=== PATIENT | male | born 1935 | race Caucasian/White ===

== ENCOUNTER → 2017-01-23 | Outpatient (CLI) | payer MEDICARE, BC ==
[~2017-01-23] MED LIST: ADALATCC PO; AMBIEN PO; ASPIRIN PO; ASPIRIN81 M1 PO; ASPIRIN81 MG PO; ATORVASTATIN CA10 MG PO; BENZONATATE PO; BUMEX1 MG PO; CELEBREX PO; CEPHALEXIN PO; CIPRO PO; CLARITIN10 M3 PO; CLONIDINE HCL0.1 MG PO; CLOPIDOGREL BIS75 MG PO; COLCRYS0.6 MG PO; CORDARONE200 M1 PO; DUONEB 2.5-0.5 M3 ML NEB; EFFEXOR XR PO; EFFEXOR XR150 MG PO; EFFEXOR XR75 MG PO; FLOMAX PO; FLOMAX0.4 M1 PO; FLOMAX0.4 MG PO; FUROSEMIDE80 MG PO; HYDRALAZINE HCL50 MG PO; IMDUR120 MG PO; ISORDIL PO; LASIX PO; LEVAQUIN PO; LIPITOR PO; LISINOPRIL20 MG PO; METOCLOPRAMIDE H5 MG PO; METOPROLOL TAR25 MG PO; MIRTAZAPINE30 M1 PO; MUCINEX DM ER1 EACH PO; MUCUS ER600 MG PO; NEPHROCAPS1 CAP PO; NORCO 5/325 TAB1 TAB PO; NORVASC10 MG PO; PANTOPRAZOLE SO40 MG PO; PREDNISONE PO; PRO-AMATINE5 M1 PO; PRO-AMATINE5 MG PO; PROTONIX PO; PULMICORT0.5 MG/2 M NEB; REGLAN5 MG PO; RENAL SOFTGEL1 MG PO; ROBITUSSIN100 MG/51 PO; SENNA-S TABLET1 EACH PO; SEROQUEL XR50 MG PO; SEROQUEL50 MG DOB; SERTRALINE HCL100 M1 PO; SIMVASTATIN20 MG PO; SKELAXIN PO; SYNTHROID PO; SYNTHROID125 PO; TOPROL XL 50 MG50 M1 PO; TOPROL XL PO; TRAMADOL HCL50 M2 PO; TYLOX1 CAP 5/50; ULORIC40 MG PO; ZOCOR20 MG PO; ZYLOPRIM PO; [UNRECOGNIZED DRUG - OTHER]
--- NOTE | ~2017-01-23 | CT57 ---
[facility] A Service of [facility] & [facility] RADIOLOGY TEXT RESULTS PATIENT: NOEMÍ LAYNE LOCATION: [facility] : 33 UNIT #: [id number] AGE: [address]: Kenneth Krause MD SEX: M ORDER DR: [id number] [facility] [address] [place], [place] [address] [id number] O MR#: [id number] Acc #: [id number] NAME: NOEMÍ LAYNE : 1935 SEX: M STUDY DATE/TIME: 01/23/2017 13:02 UNIT: CCA ROOM: STUDY DESCRIPTION: CT Chest Wo Cont Attending Physician: Kenneth Krause M.D. Referring Physician: Kenneth Krause M.D. Ordering Physician: Kenneth Krause M.D. Primary Care Physician: Kranthi Sotelo M.D. MEDICAL IMAGING REPORT This report is preliminary unless electronic signature is present EXAM CT chest without contrast 01/23/2017 13:02 hours HISTORY An 81-year-old man with history of lung carcinoma and left pleural effusion for followup. History of renal failure on dialysis. Patient complains of coughing for [address] 06/10/[address] 06/14/2016 TECHNIQUE Helical noncontrasted images were obtained from the thoracic inlet through the adrenal glands. Sagittal and coronal reconstructions were performed. Total exam DLP 620 mGy/cm. This CT exam was performed with one or more of the following radiation dose reduction techniques: automatic exposure control, adjustment of mA and/or kV according to patient size, and iterative reconstruction. FINDINGS Images through the thoracic inlet demonstrate no thyroid mass or supraclavicular adenopathy. Images through the chest demonstrate volume loss in the left hemithorax with shift of the heart and mediastinum to the left. There is pleural fluid surrounding the left hemithorax with new pleural calcification seen mostly posteriorly and at the base, question prior pleurodesis. There is underlying significant emphysematous change. There is airspace change in the left lung base and only a small amount of aerated lung in the left upper lobe. The amount of aerated lung is decreased from the prior studies likely due to the increasing surrounding rind of pleural STS. [facility] A Service of [facility] & [facility] RADIOLOGY TEXT RESULTS PATIENT: NOEMÍ LAYNE LOCATION: [facility] : 33 UNIT #: [id number] AGE: [address]: Kenneth Krause MD SEX: M ORDER DR: fluid/pleural thickening. There is emphysematous change in the right lung with interstitial basilar change present and unchanged likely chronic interstitial change. There is a small prevascular node measuring 1.4 cm on image 22 increased from less than 1 cm previously. There are additional small AP window nodes which are stable to slightly increased. These are likely pathologic given their proximity to known tumor although none of these is bulky. Limited views through the upper abdomen demonstrate no liver or adrenal lesion. The [place] kidneys are atrophic with bilateral cysts unchanged. There are gallstones in the gallbladder. Bone window images demonstrate some callous formation at the left posterior sixth rib fracture which is not well healed. There is a new fracture of the 7th rib just posterior inferior to the initial fracture. There is no definite pathologic change. There is some persistent soft tissue thickening at the site of previous sixth rib fracture but this has decreased from prior PET CT. There is subcutaneous interstitial post exchange manager the left chest wall greater than right chest wall which may represent postradiation change. IMPRESSION 1. Since the PET CT of 06/10/2016, the patient has had increase in circumferential pleural thickening and/or pleural fluid with new dependent pleural calcifications at the right posterior lung base which may be related to prior pleurodesis. There is a very little aerated lung in the left upper lobe. The previous left hilar mass is likely present but it is confluent with the other unopacified atelectatic left lower lobe of lung. There are small prevascular and AP window nodes which are increased in size although the largest is 1.4 cm in size. These have increased since 06/10/2016 and are concerning for pathologic nodes. 2. The previous left rib fracture which was acute on 06/10/2016 demonstrates some periosteal new bone formation. There is a new fracture of the left seventh rib just posterior and inferior to the sixth rib fracture with some residual soft tissue edema at the fracture sites. There is no definite lytic or blastic lesion. 3. The right lung is clear of acute densities. There is emphysematous change and chronic basilar predominant interstitial change which is stable. 4. No definite liver or adrenal metastasis. Dictated by... Jaz De La Cruz M.D. THIS IS AN ELECTRONICALLY VERIFIED REPORT Jaz De La Cruz M.D. at 01/23/2017 2:28 PM SALENA/elvie TD: 01/23/2017 13:57 [facility]. [facility] A Service of [facility] RADIOLOGY TEXT RESULTS PATIENT: NOEMÍ LAYNE LOCATION: [facility] : 33 UNIT #: [id number] AGE: [address]: Kenneth Krause MD SEX: M ORDER DR: JOB #: [id number] MEDICAL IMAGING REPORT Page 1 of 1 COPY
== END | disposition home or self-care (01) ==
LOC: CCAT 12:48
DX: J90 Pleural effusion, not elsewhere classified (principal); J92.9 Pleural plaque without asbestos; S22.32XA Fracture of one rib, left side, initial encounter for closed fracture; R91.8 Other nonspecific abnormal finding of lung field; Z85.118 Personal history of other malignant neoplasm of bronchus and lung
CPT/HCPCS: 71250

== ENCOUNTER 2017-05-25 16:43 | Emergency (ER) | payer MEDICARE, BC ==
--- NOTE | ~2017-05-25 | EKG ---
PATIENT: NOEMÍ LAYNE UNIT #: [id number] Ventricular Rate: 89 BPM Atrial Rate: 89 BPM P-R Interval: 136 ms QRS Duration: 76 ms Q-T Interval: 368 ms QTC Calculation(Bezet): 447 ms P [place]: 29 degrees Calculated R [place]: 9 degrees Calculated T [place]: 78 degrees Diagnosis Line: Normal sinus rhythm Diagnosis Line: Low voltage QRS Diagnosis Line: Borderline ECG Diagnosis Line: When compared with ECG of 02-OCT-2013 09:13, Diagnosis Line: Nonspecific T wave abnormality no longer evident Diagnosis Line: in Inferior leads Diagnosis Line: Confirmed by CHERRIE MENDEZ MD ([id number]) on Diagnosis Line: 05/26/2017 10:55:06 AM INTERPRETING MD: VANESSA PLAZA
[2017-05-25 17:52] LABS: BASOPHIL% 0.3 % (0-2.5); EOSINOPHIL% 0.2 % (0.0-7.0); HEMATOCRIT 30.9 % (38.0-50.0); LYMPHOCYTE# 0.4 X10e3 (1.0-3.5); LYMPHOCYTE% 5.7 % (17.0-45.0); MEAN CELL VOLUME 97.6 FL (83-96); MEAN CORPUSCULAR HEMOGLOBIN 31.7 PG (28-34); MEAN CORPUSCULAR HGB CONC 32.5 g/dL (30-36); MEAN PLATELET VOLUME 6.3 FL (6.5-11.5); MONOCYTE# 0.6 X10e3 (0-1.0); MONOCYTE% 7.5 % (3.0-12.0); NEUTROPHIL# 6.7 X10e3 (1.5-7.1); NEUTROPHIL% 86.3 % (40-75); PLATELET COUNT 209 X10e3 (140-420); RED BLOOD COUNT 3.17 X10e (3.90-5.60); RED CELL DISTRIBUTION WIDTH 18.9 % (11.0-15.5); WHITE BLOOD COUNT 7.7 X10e3 (4.0-10.5)
[2017-05-25 17:56] LABS: DIFF IND NO
[2017-05-25 18:08] LABS: BUN/CREATININE RATIO 10.62; CALCIUM SERUM 8.6 mg/dL (8.4-10.2); CREATININE SERUM 1.6 mg/dL (0.6-1.4); POTASSIUM 3.6 mmol/L (3.5-5.1)
== END 2017-05-25 19:34 | disposition home or self-care (01) ==
LOC: SED 16:43
PROVIDERS: Physician Assistant
DX: I95.1 Orthostatic hypotension (principal); Z88.0 Allergy status to penicillin; Z88.1 Allergy status to other antibiotic agents; W17.89XA Other fall from one level to another, initial encounter; Y92.9 Unspecified place or not applicable
CPT/HCPCS: 36415; 80048; 85025; 93005; 99284

== ENCOUNTER 2017-05-26 12:50 | Emergency (ER) | payer MEDICARE, BC ==
--- NOTE | ~2017-05-26 | CR281 ---
[facility] A Service of [facility] RADIOLOGY TEXT RESULTS PATIENT: NOEMÍ LAYNE LOCATION: SED : 33 UNIT #: [id number] AGE: [address]: Inocente Tavarez MD SEX: M ORDER DR: [id number] [place] [address] [id number] E MR#: [id number] Acc #: [id number] NAME: NOEMÍ LAYNE : 1935 SEX: M STUDY DATE/TIME: UNIT: SED ROOM: STUDY DESCRIPTION: CR Wrist Min 3 View Lt Attending Physician: Inocente Tavarez M.D. Ordering Physician: Inocente Tavarez M.D. Primary Care Physician: Kranthi Sotelo M.D. MEDICAL IMAGING REPORT This report is preliminary unless electronic signature is present. EXAM Left wrist 3 views 05/26/2017 1348 hours HISTORY 82-year-old man who fell yesterday with trauma to wrist and elbow. Bleeding at elbow today. COMPARISON None. FINDINGS AP, lateral and oblique views are performed with a gauze dressing on the dorsal wrist. The distal ulna is intact. There is spurring at the attenuation between the distal radius and ulna. There is an oblique sclerotic density in the distal radius which is likely not an acute fracture. No carpal bone fracture is seen. There are mild degenerative changes in the carpus. IMPRESSION Exam is performed with a gauze dressing on the dorsal wrist. There is no definite fracture. There is an oblique sclerotic density in the distal radius felt likely chronic and likely not an acute fracture. There is joint space loss at the radiocarpal joint with small cystic changes present. Dictated by... Jaz De La Cruz M.D. THIS IS AN ELECTRONICALLY VERIFIED REPORT Jaz De La Cruz M.D. at 05/27/2017 5:21 PM SMM/pcl [facility] A Service of [facility] RADIOLOGY TEXT RESULTS PATIENT: NOEMÍ LAYNE LOCATION: SED : 33 UNIT #: [id number] AGE: [address]: Inocente Tavarez MD SEX: M ORDER DR: TD: 05/26/2017 18:47 JOB #: [id number] MEDICAL IMAGING REPORT Page 1 of 1
== END 2017-05-26 14:55 | disposition home or self-care (01) ==
LOC: SED 12:50
DX: S60.212A Contusion of left wrist, initial encounter (principal); Z86.19 Personal history of other infectious and parasitic diseases; Z98.890 Other specified postprocedural states; Z88.0 Allergy status to penicillin; Z88.1 Allergy status to other antibiotic agents; Z79.899 Other long term (current) drug therapy; Z79.82 Long term (current) use of aspirin; W19.XXXA Unspecified fall, initial encounter; Y92.9 Unspecified place or not applicable
CPT/HCPCS: 73110; 99283

== ENCOUNTER → 2017-06-05 | Outpatient (CLI) | payer MEDICARE, BC ==
--- NOTE | ~2017-06-05 | CT57 ---
[facility] A Service of [facility] RADIOLOGY TEXT RESULTS PATIENT: NOEMÍ LAYNE LOCATION: [facility] : 33 UNIT #: [id number] AGE: [address]: Kenneth Krause MD SEX: M ORDER DR: [id number] [facility] [address] [place], [place] [address] [id number] O MR#: [id number] Acc #: [id number] NAME: NOEMÍ LAYNE. : 1935 SEX: M STUDY DATE/TIME: 06/05/2017 12:56 UNIT: CCA ROOM: STUDY DESCRIPTION: CT Chest Wo Cont Attending Physician: Kenneth Krause M.D. Referring Physician: Kenneth Krause M.D. Ordering Physician: Kenneth Krause M.D. Primary Care Physician: Kranthi Sotelo M.D. MEDICAL IMAGING REPORT This report is preliminary unless electronic signature is present EXAM CT of the chest without contrast INDICATION Followup lung cancer. Previous pneumonectomy. Observation of malignant process. TECHNIQUE CT chest performed without contrast. Coronal and sagittal reformatted images were obtained. This CT examination was performed with one or more of the following radiation dose reduction techniques: automatic exposure control, adjustment of mA and/or kV according to patient size, and iterative reconstruction. COMPARISON 01/23/2017. FINDINGS There is now complete atelectasis of the left lung. There is increased pleural fluid in the left hemithorax. Stable pleural calcifications on the left. There is new material filling the distal left mainstem bronchus extending into the upper and lower lobe bronchi. I am unsure if this represents mucous/secretions or tumor. Correlation with bronchoscopy may be helpful. There is a small right-sided pleural effusion. This has increased since the previous study. There is increase in size of a small pericardial effusion. Increase in size of prevascular space lymph nodes. The lymph node on image 20 measures 2 cm in greatest dimension. Previously, it was 1.6 cm. A lymph node adjacent to the aortic arch measures 2.4 x 2 cm in greatest dimension. Previously, it was 1.4 cm. Subcarinal nodes have increased in size. Index subcarinal node on image 27 measures 2.8 x 1.9 cm. Previously, it was 1.8 x 1.2 cm. There is also increase in size of lymphadenopathy in the upper mediastinum located around the origins of the left common carotid artery and left subclavian STS. [facility] A Service of [facility] RADIOLOGY TEXT RESULTS PATIENT: NOEMÍ LAYNE LOCATION: [facility] : 33 UNIT #: [id number] AGE: [address]: Kenneth Krause MD SEX: M ORDER DR: artery. A confluent stephany mass measures roughly 4.2 x 2.5 cm. Emphysema involving the right lung. There is a 1.2 cm nodule in the right lower lobe on image 42. This is new. There is a new 7 mm nodule in the right lower lobe on image 31. There is increased soft tissue edema within the left chest wall. Limited imaging of the upper abdomen shows stable renal cysts. There is diffuse sclerotic metastatic disease within the thoracic spine and also sclerotic metastatic disease within multiple ribs. There is a lytic lesion with associated pathologic fracture of the right seventh rib. Lytic lesion involving the left ninth rib, eighth rib. Redemonstrated are fractures involving the left seventh and sixth ribs. IMPRESSION 1. Interval worsening. There has been interval complete atelectasis involving the left lung and there is material filling the distal left mainstem bronchus extending into the left upper and lower lobe bronchi. I am unsure if this represents tumor or secretions/mucous. Further evaluation with bronchoscopy may be helpful. 2. Interval increase in size of numerous mediastinal lymph nodes most suggestive of worsening metastatic disease. 3. Development of 2 small pulmonary nodules within the right lung suspicious for metastatic disease. 4. Diffuse sclerotic osseous metastatic disease as described. There are also some lytic metastatic lesions as well within multiple left and right sided ribs. Dictated by... Barrera Mcclelland M.D. THIS IS AN ELECTRONICALLY VERIFIED REPORT Barrera Mcclelland M.D. at 06/07/2017 8:00 AM CAROLYN/srinivasa TD: 06/06/2017 13:41 JOB #: [id number] MEDICAL IMAGING REPORT Page 1 of 1 COPY
== END | disposition home or self-care (01) ==
LOC: CCAT 12:26
DX: C79.51 Secondary malignant neoplasm of bone (principal); C34.90 Malignant neoplasm of unspecified part of unspecified bronchus or lung; J98.11 Atelectasis; R91.8 Other nonspecific abnormal finding of lung field
CPT/HCPCS: 71250